=== PATIENT | male | born 1945 ===

== ENCOUNTER 2017-12-28 16:36 | Inpatient (IN) | payer MEDICARE, OTHER ==
[2017-12-28] MEDS ORDERED: Acetaminophen 500 MG TAB ONE (17:05)
[2017-12-28 17:47] LABS: Hemoglobin 13.8 g/dL (14.0-18.0); Mean Corpuscular HGB CONC 33.2 g/dL (32.0-36.0); Mean Corpuscular Hemoglobin 31.4 pg (27.0-31.0); Mean Corpuscular Volume 94.8 fL (78.0-98.0); Mean Platelet Volume 7.8 fL (7.4-10.4); Platelet Count 207 thou/uL (130-400); Red Blood Cell (RBC) Count 4.38 mill/uL (4.70-6.10); White Blood Cell (WBC) Count 12.2 thou/uL (4.8-10.8)
[2017-12-28 18:11] LABS: Band 6 % (5-11); Hypochromia SLIGHT = 6-15 cells (100X) (0-5/hpf); Lymphocytes 5 % (21-51); MDiff Complete? YES; Monocytes 5 % (0-10); Neutrophil 84 % (42-75); PLT Morphology Comment Appears Adequate
[2017-12-28 18:15] LABS: ALT (SGPT) 15 U/L (8-55); AST (SGOT) 22 U/L (5-34); Albumin 3.8 g/dL (3.4-4.8); Alkaline Phosphatase 61 U/L (40-150); Anion Gap 13 mmol/L (10-20); BUN (Urea Nitrogen) 21 mg/dL (8.4-25.7); Bilirubin, Total 2.3 mg/dL (0.2-1.2); Calc. Creatinine Clearance 0 mL/min (70-130); Calcium 9.1 mg/dL (7.8-10.44); Carbon Dioxide 23 mmol/L (23-31); Chloride 102 mmol/L (98-107); Estimated GFR-MDRD 83; Globulin 3.4 g/dL (2.4-3.5); Glucose 109 mg/dL (83-110); Potassium 3.7 mmol/L (3.5-5.1); Protein, Total 7.2 g/dL (5.8-8.1); Sodium 134 mmol/L (136-145)
[2017-12-28] MEDS ORDERED: Azithromycin 500 MG VIAL ONE (18:25)
[2017-12-28] MEDS ORDERED: cefTRIAXone\\ROCEPHIN 2 GM in Sodium Chloride 0.9% 100 ML IVPB SCH (18:30)
--- NOTE | 2017-12-28 19:10 | RAD ---
CHEST TWO VIEWS: 12/28/17 HISTORY: Cough. Fever. FINDINGS: No comparison. The cardiac silhouette is upper limits of normal in size. Pulmonary vasculature is unremarkable. Patc hy areas of parenchymal opacity are present at the left perihilar level, the medial segment right mid dle lobe, and the posterior segment of the right upper lobe. Calcified granulomata of the mediastinum are consistent with healed granulomatous disease. No significant pleural fluid or pneumothorax. IMPRESSION: Multilobar pneumonia. POS: [facility]
[2017-12-28 21:25] LABS: INR-International Normal Ratio 2.8; Prothrombin Time 29.5 SEC (12.0-14.7)
[2017-12-28 22:58] VITALS: BMI 22.6
[2017-12-29] MEDS ORDERED: Acetaminophen 500 MG TAB PO PRN (05:17)
[2017-12-29] MEDS: Acetaminophen 500 MG TAB PO PRN ×2 (05:32→18:08)
[2017-12-29] MEDS ORDERED: Loperamide HCl 2 MG CAP PO PRN (07:57)
[2017-12-29] MEDS ORDERED: Albuterol Sulfate 1.25 MG/3 ML NEB NEB PRN (07:57)
[2017-12-29] MEDS ORDERED: Digoxin 0.25 MG TAB PO SCH (09:00)
[2017-12-29] MEDS: Dutasteride 0.5 MG CAP PO SCH (09:14)
[2017-12-29] MEDS: guaiFENesin ER 600 MG TAB PO SCH ×2 (09:14→20:35)
[2017-12-29] MEDS: Tamsulosin HCl 0.4 MG CAP PO SCH (09:14)
--- NOTE | 2017-12-29 09:41 | RAD ---
PORTABLE CHEST: History: Pneumonia. Follow up. Comparison: 12-28-17 FINDINGS: There are bilateral alveolar infiltrates which do not appear significantly changed from yesterday. He art size upper normal and stable. There are bilateral calcified nodules in both lungs. IMPRESSION: Bilateral infiltrates without significant interval change. POS: [facility]
[2017-12-29 11:47] LABS: Hemoglobin 12.6 g/dL (14.0-18.0); Platelet Count 197 thou/uL (130-400)
[2017-12-29 11:51] LABS: INR-International Normal Ratio 3.9; Prothrombin Time 38.4 SEC (12.0-14.7)
--- NOTE | 2017-12-29 12:25 | HP ---
PRIMARY CARE PHYSICIAN: Dr. Carter Kohli. CHIEF COMPLAINT: Cough and fever. HISTORY OF PRESENT ILLNESS: This is a 72-year-old patient of Dr. Carter Kohli with a history of chronic atrial fibrillation, BPH, presented to the emergency department with worsening cough, fever, and shortness of breath. The patient states that he has been in his usual state of health. He is playing golf this past weekend in [place] when he developed a cough. The cough continued to worsen over the past 2-3 days, he developed a fever two days ago, he did notice blood in the sputum yesterday and has been increasingly short of breath. In the emergency department last night, he was found to have a multilobar pneumonia. He was found to be hypoxic with activity and with conversation. He is now being admitted for further evaluation and treatment. PAST MEDICAL HISTORY: Chronic atrial fibrillation, rate controlled on anticoagulant, history of BPH which is stable. MEDICATIONS: Include digoxin 250 mcg daily, Coumadin 1 mg daily, Flomax 0.4 mg daily, Avodart 0.5 mg daily. ALLERGIES: To MORPHINE. PAST SURGICAL HISTORY: Bilateral shoulder surgery, bilateral knee repair, carpal tunnel release. SOCIAL HISTORY: He is retired from the [employer]. Denies smoking. Rare alcohol use, no drug use. FAMILY HISTORY: Noncontributory. REVIEW OF SYSTEMS: As per the history of present illness. General: Denies any recent fevers, chills or illness prior to this episode. HEENT: Denies headache, visual or hearing changes. Cardiac: Denies chest pain, occasional palpitations when his atrial fibrillation acts up he says. Pulmonary: Positive cough. Positive hemoptysis. Positive shortness of breath. Gastrointestinal: No nausea, vomiting. Positive diarrhea for the past 3 days. No melena, no hematochezia. Genitourinary: History of BPH. No dysuria, denies hematuria. Musculoskeletal: Positive chronic joint pain. He states he does have a history of arthritis in the past. Psychiatric: No history of depression or anxiety. PHYSICAL EXAMINATION: VITAL SIGNS: Temperature 98.8, T-max is 100.9, pulse of 100 and irregular, respirations 22, but last night was up to 30-38, blood pressure 108/59, pulse ox 100% on 3 liters nasal cannula, but dips to 88% with movement in conversation. GENERAL: He is awake and alert, mild distress with conversation. HEENT: Mucosa is moist. NECK: Supple. HEART: Irregular, irregular. LUNGS: With good aeration, but scattered rhonchi throughout. Rare wheezes, no rales. ABDOMEN: Flat, soft, nontender, nondistended. No hepatosplenomegaly. EXTREMITIES: No clubbing, cyanosis or edema, 2+ peripheral pulses bilaterally. NEUROLOGIC: Cranial nerves II through XII are grossly intact. Strength is 5/5 bilaterally. LABORATORY DATA AND IMAGING: White blood cell count was elevated at 12,200 with 84% neutrophils, 6% bands, 5% lymphocytes, hemoglobin and hematocrit are 13.8 and 41.5, platelets of 207. INR of 2.8. Sodium 134, potassium 3.7, chloride 102, CO2 23, BUN and creatinine are 21 and 0.9 with a GFR of 83. Lactic acid is 1.5, total bilirubin was elevated at 2.3. Normal liver function tests. Albumin of 3.8. Chest x-ray revealed multilobar pneumonia in the left perihilar level, right middle lobe, right upper lobe and scattered granulomatous. Blood cultures are pending. Flu test was negative for A and B. Strep test was done in the emergency department, which was negative. ASSESSMENT AND PLAN: This is a 72-year-old gentleman with a chronic atrial fibrillation, now with multilobar pneumonia, likely community-acquired pneumonia. I will continue Rocephin and Zithromax as started in the emergency department. Due to the episodes of hypoxia and bloody sputum, we will consult Pulmonary for evaluation. 1. Chronic atrial fibrillation. We will continue telemetry monitoring and monitor his PT/INR, especially starting the antibiotics. 2. Benign prostatic hypertrophy. We will continue his home medications. 3. Diarrhea, acute. Will get cultures and start imodium prn for likely viral origin. 4. Elevated bilirubin. 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 Patient desires full code status. [facility]
--- NOTE | 2017-12-29 13:09 | CON ---
DATE OF CONSULTATION: 12/29/2017 HISTORY: The patient is a 72-year-old gentleman who was admitted to the hospital with bilateral bron chopneumonia. The patient is a retired journeyman sheet metal worker who states that he started having some diffic ulty breathing several days ago, thought it was his usual atrial fibrillation issues. Finally, becau se of ongoing coughing and fever, bodyaches and a sore throat he came to the ER where x-ray shows debra ateral bronchopneumonia. He has smoked, quit smoking about 40 years ago. There is no previous history of TB, pneumonia or bro nchial asthma. In fact, he is an avid gym worker, he goes 3 times a week, he is very active. PAST MEDICAL HISTORY: Pertinent mainly for his atrial fibrillation, arthritis. He has been seeing a local channel marketing coordinator for many years. PAST SURGICAL HISTORY: Multiple including both shoulders, both knees several times. MEDICATIONS: From home includes Coumadin, Flomax, Avodart and Lanoxin. ALLERGIES: MORPHINE. SOCIAL/FAMILY HISTORY: As noted. REVIEW OF SYSTEMS: Ten point negative. PHYSICAL EXAMINATION: GENERAL: His sats are about 92-94% on supplemental 2 liters. Temperature 98, blood pressure 180/59. CHEST: Chest reveals extensive rhonchi and crackles. CARDIAC: Atrial fibrillation. ABDOMEN: Soft. LABORATORY: His white count is 12,000, H&H 13 and 41, he has got 84 segs, 6 bands. INR is 2.8. Audelia ctrolytes are normal. X-ray has noted diffuse infiltrates. Influenza screen was negative. IMPRESSION: 1. Bilateral bronchopneumonia, community-acquired. 2. Remote history of smoking. 3. Benign prostatic hypertrophy. 4. Atrial fibrillation. PLAN: Continue present treatment. Sputum will be ordered for culture. We will deescalate antibiotics as soon as we have results back. I will follow. This is a consultation note, 70 minutes, 50% spent in direct patient care.
[2017-12-29] MEDS ORDERED: Azithromycin 500 MG in Sodium Chloride 0.9% 250 ML 250 ML IVPB SCH (17:00)
[2017-12-29] MEDS ORDERED: Warfarin Sodium 1 MG TAB PO SCH ×2 (17:00)
[2017-12-29] MEDS ORDERED: Ibuprofen 200 MG TAB PO PRN (17:17)
[2017-12-29] MEDS ORDERED: cefTRIAXone\\ROCEPHIN 2 GM in Sodium Chloride 0.9% 100 ML IVPB SCH (18:00)
[2017-12-30 04:55] LABS: #Lymphocytes 1.4 thou/uL (1.20-3.40); #Monocytes 1.7 thou/uL (0.11-0.59); #Neutrophils 10.7 thou/uL (1.40-6.50); %Basophils 0.1 % (0.0-1.0); %Eosinophils 0.1 % (0.0-10.0); %Lymphocytes 10.2 % (21.0-51.0); %Monocytes 12.2 % (0.0-10.0); %Neutrophils 77.4 % (42.0-75.0); Hemoglobin 12.3 g/dL (14.0-18.0); Mean Corpuscular HGB CONC 32.7 g/dL (32.0-36.0); Mean Corpuscular Hemoglobin 31.3 pg (27.0-31.0); Mean Corpuscular Volume 95.8 fL (78.0-98.0); Mean Platelet Volume 8.1 fL (7.4-10.4); Platelet Count 222 thou/uL (130-400); Red Blood Cell (RBC) Count 3.94 mill/uL (4.70-6.10); White Blood Cell (WBC) Count 13.8 thou/uL (4.8-10.8)
[2017-12-30 05:16] LABS: Anion Gap 10 mmol/L (10-20); BUN (Urea Nitrogen) 20 mg/dL (8.4-25.7); Calc. Creatinine Clearance 91 mL/min (70-130); Calcium 8.4 mg/dL (7.8-10.44); Carbon Dioxide 25 mmol/L (23-31); Chloride 107 mmol/L (98-107); Estimated GFR-MDRD Greater than 90; Glucose 112 mg/dL (83-110); Potassium 3.6 mmol/L (3.5-5.1); Sodium 138 mmol/L (136-145)
--- NOTE | 2017-12-30 08:22 | PRG ---
DATE OF SERVICE: 12/30/2017 SUBJECTIVE: The patient was admitted with bilateral pneumonia. HISTORY OF PRESENT ILLNESS: The patient had had a busy several weeks. He had played [place] recently [place] with his daughter. 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 He states lifted over 50, 50 pounds bags of corn. He then came down with a productive cough and fever and presented to the ER. T his morning he is doing better than yesterday. However, he has severe labored breathing with any act ivity such as going to the bathroom. OBJECTIVE: VITAL SIGNS: Temperature 97.4, pulse 76, respiration 20, pulse ox 98 on 3 liters O2, blood pressure 111/63. HEART: Tachycardic following going to the bathroom. LUNGS: Bilateral rales anteriorly and posteriorly. ABDOMEN: Soft, nontender. EXTREMITIES: With no edema. LABORATORY: Sodium 138, potassium 3.6, BUN is 20, creatinine 0.75, glucose 116, 112. INR 3.0. Whit e count 13.8, H&H 12 and 37. ASSESSMENT: 1. Bilateral lobar pneumonia. 2. Dehydration. 3. Atrial fibrillation followed by Dr. Bowens. PLAN: 1. Recheck CBC, BMP in the a.m. 2. We will start IV hydration with half normal saline and potassium at 50 mL per hour. 3. Continue DuoNebs q.6h. 4. Continue Levaquin and prednisone p.o. 5. We will continue to monitor daily. Note, the patient's anxious to go home to get back to his [employer] feeders.
[2017-12-30] MEDS: 1/2 NS w/KCL 20 mEq 1,000 ML IV SCH (09:14)
[2017-12-30] MEDS: Digoxin 0.125 MG TAB PO SCH (09:18)
[2017-12-30] MEDS: predniSONE 20 MG TAB PO SCH (09:18)
[2017-12-30] MEDS: guaiFENesin ER 600 MG TAB PO SCH ×2 (09:21→21:17)
[2017-12-30] MEDS: Tamsulosin HCl 0.4 MG CAP PO SCH (09:21)
[2017-12-30] MEDS: Dutasteride 0.5 MG CAP PO SCH (09:21)
--- NOTE | 2017-12-30 09:24 | PRG ---
DATE OF SERVICE: 12/30/2017 This morning he is awake, alert, responsive, still coughing some dark yellow sputum, but no fever. PHYSICAL EXAMINATION: VITAL SIGNS: Temperature 97, pulse 76, respiration 20, sats are 93% on 3 liters, blood pressure 111/ 60. CHEST: Extensive rhonchi and crackles. CARDIAC: Normal S1-S2. No gallops. ABDOMEN: Soft. No masses. LABORATORY: INR is 3. White count 13,000, H&H 12 and 38. IMPRESSION: 1. Bilateral bronchopneumonia. 2. Supraventricular tachycardia. 3. Prolonged PT and INR. PLAN: Coumadin has been adjusted. Continue Levaquin and prednisone. PT and supportive care. I will follow.
--- NOTE | 2017-12-30 10:29 | PQF ---
MAXI TRONCOSO, ANDRE Shipman JR, MD [id number] [id number] CLINICAL DOCUMENTATION IMPROVEMENT CLARIFICATION FORM: ICD-10 Updated PLEASE DO AN ADDENDUM TO THE PROGRESS NOTE WITH ANY DOCUMENTATION UPDATES OR ADDITIONS AND CARRY THROUGH TO DC SUMMARY. THANK YOU. DATE: 12/30/17 ATTN: Dr. Kohli Please exercise your independent, professional judgment in responding to the clarification form. Clinical indicators are provided on the bottom of this form for your review Please check appropriate box(es): [ ] Sepsis due to: Pneumonia [ ] Localized infection without sepsis [ ] Other diagnosis [ ] Unable to determine In addition, please specify: Present on Admission (POA): [ ] Yes [ ] No [ ] Unable to determine For continuity of documentation, please document condition throughout progress notes and discharge summary. Thank You. CLINICAL INDICATORS - SIGNS / SYMPTOMS / LABS Fever or hypothermia (<96.8 F/36 C or > 100.4 F/38C)--> Temp max 100.9 12/29 VS Respiratory rate >20/min, Hypoxemia, --> RR 22; 88% O2 sat with conversation on 3L NC per H&P WBC count (>12,000/mm^4 or <4000/mm^3 or 10% neutros, 10% bands)--> WBC 13.8, % neutros 77.4 per 12/30 VS HR 100 12/29 VS RISK FACTORS Pneumonia likely community acquired per H&P TREATMENTS: Telemetry orders 12/29 Daily CBC 12/29 orders Blood/sputum cultures 12/29 orders IV antibiotics - broad spectrum--> Rocephin, Azithromycin IV 12/29--> 12/30 Levaquin IV per MAY IV fluids--> 1/2 NS with KCL at 50 12/29 per MAY oral prednisone 12/30 per MAY THANK YOU, DONY (This form is maintained as a part of the permanent medical record) 2014 [employer]. All Rights Reserved Dony Daniels RN, BSN, CCDS [email or web address]
--- NOTE | 2017-12-30 10:39 | PQF ---
MAXI TRONCOSO, ANDRE Shipman JR, MD [id number] CLINICAL DOCUMENTATION IMPROVEMENT CLARIFICATION FORM: ICD-10 Updated PLEASE DO AN ADDENDUM TO THE PROGRESS NOTE WITH ANY DOCUMENTATION UPDATES OR ADDITIONS AND CARRY THROUGH TO DC SUMMARY. THANK YOU. DATE: 12/30/17 ATTN: Dr. Kohli Please exercise your independent, professional judgment in responding to the clarification form. Clinical indicators are provided on the bottom of this form for your review Please check appropriate box(s): [ ] Coumadin induced coagulopathy with hemoptysis [ ] Coagulopathy [ ] Other diagnosis [ ] Unable to determine In addition, please specify: Present on Admission (POA): [ ] Yes [ ] No [ ] Unable to determine For continuity of documentation, please document condition throughout progress notes and discharge summary. Thank You. CLINICAL INDICATORS - SIGNS / SYMPTOMS / LABS Acute bleed--> patient reports blood in sputum per H&P 12/29 INR 3.9 to 12/30 INR 3.0 per lab 12/30 Dow note: prolonged PT/INR RISK FACTORS Chronic afib on coumadin per H&P TREATMENTS: Adjusted coumadin 12/29 to 1mg per MAR Daily INR 12/29 to date per orders Thank you, Paradise (This form is maintained as a part of the permanent medical record) 2014 [employer]. All Rights Reserved Paradise Daniels RN, BSN, [email or web address] [email or web address] [phone] MTDD
[2017-12-30] MEDS ORDERED: Warfarin Sodium 7.5 MG TAB PO SCH (17:00)
[2017-12-31] MEDS: 1/2 NS w/KCL 20 mEq 1,000 ML IV SCH (01:06)
[2017-12-31 04:47] LABS: #Lymphocytes 1.1 thou/uL (1.20-3.40); #Monocytes 1.5 thou/uL (0.11-0.59); #Neutrophils 9.7 thou/uL (1.40-6.50); %Basophils 0.1 % (0.0-1.0); %Eosinophils 0.2 % (0.0-10.0); %Lymphocytes 8.7 % (21.0-51.0); %Monocytes 12.3 % (0.0-10.0); %Neutrophils 78.7 % (42.0-75.0); Hemoglobin 11.8 g/dL (14.0-18.0); Mean Corpuscular HGB CONC 33.1 g/dL (32.0-36.0); Mean Corpuscular Hemoglobin 31.4 pg (27.0-31.0); Mean Corpuscular Volume 94.9 fL (78.0-98.0); Mean Platelet Volume 7.8 fL (7.4-10.4); Platelet Count 245 thou/uL (130-400); Red Blood Cell (RBC) Count 3.75 mill/uL (4.70-6.10); White Blood Cell (WBC) Count 12.3 thou/uL (4.8-10.8)
[2017-12-31 05:00] LABS: Anion Gap 13 mmol/L (10-20); BUN (Urea Nitrogen) 21 mg/dL (8.4-25.7); Calc. Creatinine Clearance 98 mL/min (70-130); Calcium 8.1 mg/dL (7.8-10.44); Carbon Dioxide 23 mmol/L (23-31); Chloride 106 mmol/L (98-107); Estimated GFR-MDRD Greater than 90; Glucose 116 mg/dL (83-110); Potassium 3.5 mmol/L (3.5-5.1); Sodium 138 mmol/L (136-145)
--- NOTE | 2017-12-31 08:40 | PRG ---
DATE OF SERVICE: 12/31/2017 SUBJECTIVE: Further history revealed that the patient lifted 900 pounds of corn seed with the help o f his friends who is 50 years old. They also loaded up two cords of wood into the truck. This was f ollowed by a round of golf. Eventually, the patient presented to the ER with shortness of breath, fe jason, and productive cough. Today, he is doing much better. However, he still gets very tachycardic with activity. He also remains on 3 liters O2, desatting when he becomes active like going to the [employer]. OBJECTIVE: VITAL SIGNS: Temperature 98.8, pulse 120, respirations 24, pulse ox 94 on 3 liters O2, blood pressur e 154/67. HEART: Irregular, irregular. LUNGS: With bilateral rales. ABDOMEN: Soft. EXTREMITIES: With no edema. GENERAL: The patient is doing well when at rest, sitting in his chair. LABORATORY DATA: Sodium 138, potassium 3.5, chloride 106, creatinine 0.67, BUN 21, glucose 112, 116. Blood culture, sputum culture, stool culture, strep culture, fluid culture are all negative. ASSESSMENT: 1. Multilobar pneumonia leading to sepsis. 2. Fever, resolved. 3. Tachycardia. 4. Chronic atrial fibrillation. 5. Anticoagulation. 6. Prolonged PT/INR. 7. Reactive airway disease. PLAN: 1. Continue IV hydration. May have to cut back if blood pressure remains elevated. 2. Consult Cardiology for tachycardia and chronic atrial fibrillation followed by Dr. Bowens, but he is out of town. 3. Echocardiogram. 4. Continue Levaquin and steroids. 5. INR, CBC and BMP in the a.m. 6. The patient is not quite ready for discharge, hopefully in the next few days.
[2017-12-31] MEDS: Digoxin 0.125 MG TAB PO SCH (09:34)
[2017-12-31] MEDS: predniSONE 20 MG TAB PO SCH (09:34)
[2017-12-31] MEDS: guaiFENesin ER 600 MG TAB PO SCH ×2 (09:36→21:21)
[2017-12-31] MEDS: Dutasteride 0.5 MG CAP PO SCH (09:36)
[2017-12-31] MEDS: Tamsulosin HCl 0.4 MG CAP PO SCH (09:37)
--- NOTE | 2017-12-31 09:42 | PRG ---
DATE OF SERVICE: 12/31/2017 SUBJECTIVE: Alex Gilbert this morning is awake, alert, responsive, still got a cough, apparently had some bloody sputum. PHYSICAL EXAMINATION: VITAL SIGNS: Though he remains afebrile. Pulse is 120, sats are 94 on 3 liters. Blood pressure is 100/56. CHEST: Chest reveals bilateral rhonchi. CARDIAC: Sinus tachycardia. ABDOMEN: Soft. LABORATORY: White count 12,000. Cultures so far negative. X-ray shows bilateral infiltrates, somew hat improved. IMPRESSION: 1. Bilateral bronchopneumonia. 2. Possibly some diastolic dysfunction. PLAN: Continue antibiotics, neb treatments, supportive care. Await results of the echo.
--- NOTE | 2017-12-31 10:02 | RAD ---
CHEST PA AND LATERAL: HISTORY: A 72-year-old male with a history of pneumonia. Followup. FINDINGS: There is somewhat more diffuse interstitial and reticulonodular parenchymal changes throughout the ri ght upper lobe, from the prior study. In addition, the more globular left perihilar infiltrative vidal nges are somewhat less dense with some associated persistent linear and interstitial parenchymal juan ges, as well as small bilateral pleural effusions. Heart size is at least borderline. IMPRESSION: Evolving bilateral pneumonia with somewhat less dense alveolar parenchymal changes but more widesprea d interstitial and reticulonodular parenchymal changes in both lungs. Continued short-term followup for clearing. POS: [facility]
[2017-12-31 10:17] LABS: Platelet Count 283 thou/uL (130-400)
[2017-12-31 10:28] LABS: INR-International Normal Ratio 2.5; Prothrombin Time 27.3 SEC (12.0-14.7)
[2017-12-31] MEDS ORDERED: Furosemide 20 MG/2 ML VIAL SLOW IVP SCH (13:15)
--- NOTE | 2017-12-31 21:17 | CON ---
DATE OF CONSULTATION: 12/31/2017 INDICATION FOR CONSULTATION: A 72-year-old gentleman with bilateral pneumonia and chronic atrial fibrillation with rapid ventricular response. We were asked to see him due to his atrial fibrillation with rapid ventricular response. This is a very pleasant 72-year-old gentleman followed by Dr. Bowens for many years now. He has been followed up on a routine basis. He has had atrial fibrillation, has been on Coumadin for many years. He has had 3 ablations in the past and also she has had 5 cardioversions, but continues to have atrial fibrillation. He denies any chest pain. He has had no previous cardiac history that we are aware of. His last ejection fraction showed a normal ejection fraction by echocardiogram. His repeat echocardiogram pending for today. At this time, he is relatively asymptomatic with his atrial fibrillation , but when moves around or is too active that his heart rate does pickle processor and he does notice that at this time with increasing shortness of breath over the last several weeks and now been diagnosed with bilateral pneumonia and the heart rate also has increased again. Actually on admission, his heart rate was 120 and he has had heart rates since being in here with minimal activity. Heart rate is increased up to almost 160 with the atrial fibrillation. He still denies any discomfort or any chest pain and there were no acute ST segment changes noted though indicate ischemia. PAST MEDICAL HISTORY: Significant for chronic atrial fibrillation, multiple ablations, multiple cardioversions, now he has pneumonia. He has had a history of atrial flutter in the past. He has had a history of surgery to both hands, trigger fingers of both hands. He has had right knee surgery, right rotator cuff repair. He has umbilical surgery and had a vasectomy. ALLERGIES: None. MEDICATIONS: Prior to admission included Coumadin on a scale to keep the INR between 2 and 3, dutasteride 0.5 mg capsules q.p.m., aspirin 81 mg a day, tamsulosin 0.4 mg 1 tablet every day half an hour following the same meal, Lasix 20 mg a day, digoxin 125 mcg daily, metoprolol 25 mg a day. FAMILY HISTORY: Noncontributory. SOCIAL HISTORY: He smoked in the past, but stopped about 40 years ago. There is no significant alcohol use. He has family members who are alive and well. REVIEW OF SYSTEMS: Twelve-point review of systems grossly unremarkable except he does complain of some rapid heart rate, some shortness of breath when he works out at the gym if he over exerts himself. Otherwise, the 12-point review of systems is relatively unremarkable except what was noted in the history of present illness. PHYSICAL EXAMINATION: GENERAL: Reveals a very thin elderly gentleman who is in no acute distress at this time. He did become short of breath, when he got up and went to the bathroom and come back. He could tell that he was somewhat short of breath and also was more tachycardic. VITAL SIGNS: His blood pressure 123/78, heart rate is anywhere between the 90s to 160s. He is afebrile, respiratory rate is 20-24 depending on his level of activity. HEENT: Shows head to be normocephalic, atraumatic. Carotid pulses are present. I did not hear any significant bruits. CHEST: Has some scattered rhonchi. CARDIOVASCULAR: Exam revealed an irregularly irregular rhythm, somewhat tachycardic. He had soft systolic murmur at the apex. ABDOMEN: Soft and nontender. Positive bowel sounds are present. EXTREMITIES: Show no clubbing, cyanosis or edema. Pedal pulses are present. NEUROLOGIC: He appears to be fully intact. He appears to have normal strength and tone. LABORATORY AND X-RAY FINDINGS: EKG as noted above. Laboratory data shows a BUN of 21, creatinine 0.67, potassium of 3.5, hemoglobin 13, hematocrit 39.6, WBC of 12.3, blood sugar was 116. BNP was 420. IMPRESSION: 1. Bilateral pneumonia. The patient remains on antibiotics. 2. History of chronic atrial fibrillation. We will need to readjust his medications somewhat to see whether or not we can control the rate. We will increase his metoprolol. He is not on any digoxin. We will add digoxin for rate control as needed. We may try digoxin first, he is already on digoxin. I would need to obtain a level to see whether or not it is adequate. By the meantime, we will be increase the level of the metoprolol as long as blood pressure will tolerate it. 3. History of benign prostatic hypertrophy. This will be dealt with by the primary care service. He denied any complaints regarding his benign prostatic hypertrophy. 4. Chronic atrial fibrillation. We will continue the Coumadin and we will try to control the rate. 5. History of mitral valve insufficiency, it was mild to moderate. We will reevaluate the echocardiogram to see whether or not this has increased. At this time, overall cardiac status is relatively stable except that we will need to control the heart rate better with the atrial fibrillation. MTDD
[2017-12-31] MEDS: Metoprolol Tartrate 25 MG TAB PO SCH (21:21)
[2018-01-01] MEDS: 1/2 NS w/KCL 20 mEq 1,000 ML IV SCH (02:56)
[2018-01-01 06:20] LABS: INR-International Normal Ratio 2.5; Prothrombin Time 27.1 SEC (12.0-14.7)
[2018-01-01 06:24] LABS: Digoxin 0.35 ng/mL (0.8-2.0)
[2018-01-01 06:26] LABS: Anion Gap 11 mmol/L (10-20); BUN (Urea Nitrogen) 19 mg/dL (8.4-25.7); Calc. Creatinine Clearance 92 mL/min (70-130); Calcium 8.6 mg/dL (7.8-10.44); Carbon Dioxide 27 mmol/L (23-31); Chloride 105 mmol/L (98-107); Estimated GFR-MDRD Greater than 90; Glucose 101 mg/dL (83-110); Potassium 3.5 mmol/L (3.5-5.1); Sodium 139 mmol/L (136-145)
[2018-01-01 06:52] LABS: Band 3 % (5-11); Hemoglobin 11.6 g/dL (14.0-18.0); Hypochromia SLIGHT = 6-15 cells (100X) (0-5/hpf); Lymphocytes 9 % (21-51); MDiff Complete? YES; Mean Corpuscular HGB CONC 33.2 g/dL (32.0-36.0); Mean Corpuscular Hemoglobin 31.3 pg (27.0-31.0); Mean Corpuscular Volume 94.4 fL (78.0-98.0); Mean Platelet Volume 7.8 fL (7.4-10.4); Monocytes 9 % (0-10); Neutrophil 79 % (42-75); PLT Morphology Comment Appears Adequate; Platelet Count 306 thou/uL (130-400); White Blood Cell (WBC) Count 11.7 thou/uL (4.8-10.8)
[2018-01-01] MEDS: guaiFENesin ER 600 MG TAB PO SCH ×2 (08:13→21:19)
[2018-01-01] MEDS: Metoprolol Tartrate 25 MG TAB PO SCH ×2 (08:13→21:19)
[2018-01-01] MEDS: Tamsulosin HCl 0.4 MG CAP PO SCH (08:13)
[2018-01-01] MEDS: Dutasteride 0.5 MG CAP PO SCH (08:13)
[2018-01-01] MEDS: predniSONE 20 MG TAB PO SCH (08:13)
[2018-01-01] MEDS: Digoxin 0.125 MG TAB PO SCH (08:13)
--- NOTE | 2018-01-01 10:52 | PRG ---
DATE OF SERVICE: 01/01/2018 SUBJECTIVE: This morning, the patient is doing much better. Yesterday, he received a dose of IV Las ix. He has lost 5 pounds over the past 24 hours. He is more active in his room. OBJECTIVE: VITAL SIGNS: Temperature 98.1, pulse 94, respirations 19, pulse ox 97 on room air, blood pressure 13 5/71. CARDIOVASCULAR: Irregular irregular rate controlled. LUNGS: With fine rales bilaterally, but markedly improved. ABDOMEN: Soft. EXTREMITIES: No edema. LABORATORY DATA: H&H is 11 and 34. White count down to 11.7, INR 2.5. Electrolytes normal. Creati nine 0.71, BUN 19, blood sugar 101. Digoxin level 0.35. IMAGING: Chest x-ray improving, bilateral infiltrates still present. ASSESSMENT: 1. Multilobar pneumonia/sepsis, improving. 2. Fever, resolved. 3. Chronic atrial fibrillation with rapid ventricular response, resolved. Rate now less than [address] increasing the metoprolol to b.i.d. 4. Anticoagulation. 5. Reactive airway disease. PLAN: 1. Hydrate p.o. IV Hep-Lock. 2. Echocardiogram shows an ejection fraction of 60%-65%. The patient's rate is controlled on the me toprolol b.i.d. 3. Continue Levaquin and steroids. 4. Possibly discharge in the next 1-2 days.
--- NOTE | 2018-01-01 13:05 | PDOC.CTH ---
<Radha Bassett - Last Filed: 01/01/18 13:02> Cardiology Progress Note - Subjective The pt seen and examined. No overnight events. No cardiac complaints. - Objective Vital Signs Temp Pulse Resp BP Pulse Ox 01/01/18 08:13 94 01/01/18 08:07 98.1 F 89 19 135/71 97 01/01/18 08:01 92 L 01/01/18 07:58 97 20 92 L 01/01/18 03:45 98.7 F 92 112/70 90 L Admit Weight 162 lb Weight 154 lb 8 oz 12/31/17 01/01/18 01/02/18 06:59 06:59 06:59 Intake Total 3380 960 Balance 3380 960 - Physical Examination General/Neuro: alert & oriented x3 Neck: no JVD present Lungs: CTA Heart: other: (irregular) Abdomen: soft Extremities: other: (No edema) - Telemetry Telemetry Rhythm: AFib 90s - Labs Result Diagrams: 01/01/18 05:27 01/01/18 05:27 - Assessment/Plan 1. Chronic Afib/aflutter - Rate well controlled with Metoprolol, Diogixn, and Coumadin. Dig level was 0.35. 2. Bilat. PNA - stable managed by PCP 3. Restrictive airway disease - stable 4. BPH MAR reviewed * Echo on 12/31/17 showed EF 60-65%, trace MR, trace TR, and mild LVH. Review of Systems - Review of Systems Constitutional: reports: no symptoms reported EENTM: reports: no symptoms reported Respiratory: reports: no symptoms reported Cardiac (ROS): reports: no symptoms reported ABD/GI: reports: no symptoms reported : reports: no symptoms reported Musculoskeletal: reports: no symptoms reported <Janet Jacobo - Last Filed: 01/02/18 00:01> Cardiology Progress Note - Objective Vital Signs Temp Pulse Resp BP BP Pulse Ox 01/01/18 20:15 97.8 F 119 H 19 118/67 93 L 01/01/18 19:24 92 L 01/01/18 19:23 92 L 01/01/18 15:57 98.0 F 100 20 138/75 92 L 01/01/18 13:22 100 20 01/01/18 13:00 92 L 01/01/18 12:55 99.0 F 84 20 118/71 90 L Admit Weight 162 lb Weight 154 lb 8 oz 12/31/17 01/01/18 01/02/18 06:59 06:59 06:59 Intake Total 3380 960 960 Balance 3380 960 960 - Labs Result Diagrams: 01/01/18 05:27 01/01/18 05:27 - Assessment/Plan Pt. seen and evaluated by me. I agree with the A/P by the SLIDE FORMING MACHINE OPERATOR. We have discussed the pt. and the plan.Chest clear. Irreg/irreg.
[2018-01-02] MEDS: predniSONE 20 MG TAB PO SCH (09:30)
[2018-01-02] MEDS: Digoxin 0.125 MG TAB PO SCH (09:30)
[2018-01-02] MEDS: Dutasteride 0.5 MG CAP PO SCH (09:31)
[2018-01-02] MEDS: guaiFENesin ER 600 MG TAB PO SCH ×2 (09:31→20:10)
[2018-01-02] MEDS: Tamsulosin HCl 0.4 MG CAP PO SCH (09:31)
[2018-01-02] MEDS: Metoprolol Tartrate 25 MG TAB PO SCH ×2 (09:31→20:10)
[2018-01-02 11:02] LABS: Hemoglobin 12.6 g/dL (14.0-18.0); Platelet Count 382 thou/uL (130-400)
[2018-01-02 11:11] LABS: Prothrombin Time 22.4 SEC (12.0-14.7)
--- NOTE | 2018-01-02 12:43 | RAD ---
TWO VIEW CHEST: COMPARISON: 12/31/2017. INDICATION: Multilobar pneumonia. FINDINGS: There is progressive opacity of the right upper lung zone. Diffuse interstitial prominence of each l erica present. There is a pleural-based density again seen at the lower chest bilaterally. Cardiac si lhouette and pulmonary vasculature are prominent. IMPRESSION: 1. Progressive patchy multifocal opacity of the right upper lung zone. This is indicative of an aty pical pneumonia. Correlate clinically. 2. Bilateral pleural-based densities persist. POS: [facility]
--- NOTE | 2018-01-02 13:22 | PDOC.CTH ---
<Radha Bassett - Last Filed: 01/02/18 13:26> Cardiology Progress Note - Subjective The pt seen and examined. No overnight events. No cardiac complaints. the pt cont. having very hard coughs from PNA. - Objective Vital Signs Temp Pulse Resp BP Pulse Ox 01/02/18 09:30 99 01/02/18 08:00 97.6 F 99 20 127/81 94 L 01/02/18 07:19 99 01/02/18 07:11 82 L 01/02/18 07:08 101 H 20 82 L 01/02/18 04:00 98.7 F 87 20 124/69 94 L Admit Weight 162 lb Weight 152 lb 3.2 oz 01/01/18 01/02/18 01/03/18 06:59 06:59 06:59 Intake Total 960 1210 Balance 960 1210 - Physical Examination General/Neuro: alert & oriented x3 Neck: no JVD present Lungs: other: (coarses and diminished at bases) Heart: other: (irregular) Abdomen: soft Extremities: other: (No edema) - Telemetry Telemetry Rhythm: Afib 90-100s - Labs Result Diagrams: 01/02/18 10:28 01/01/18 05:27 - Assessment/Plan 1. Chronic Afib/aflutter - Rate well controlled with Metoprolol, Diogixn, and Coumadin, which will resume from this PM. Dig level was 0.35. 2. Bilat. PNA - stable managed by PCP 3. Restrictive airway disease - stable 4. BPH MAR reviewed * Echo on 12/31/17 showed EF 60-65%, trace MR, trace TR, and mild LVH. Review of Systems - Review of Systems Constitutional: reports: no symptoms reported EENTM: reports: no symptoms reported Respiratory: reports: see HPI Cardiac (ROS): reports: no symptoms reported ABD/GI: reports: no symptoms reported : reports: no symptoms reported Musculoskeletal: reports: no symptoms reported <Janet Jacobo - Last Filed: 01/02/18 22:29> Cardiology Progress Note - Objective Vital Signs Temp Pulse Resp BP Pulse Ox 01/02/18 20:15 97.4 F L 108 H 16 122/81 96 01/02/18 19:03 91 L 01/02/18 19:02 91 L 01/02/18 15:50 98.6 F 102 H 20 129/82 91 L 01/02/18 14:19 81 20 90 L Admit Weight 162 lb Weight 152 lb 3.2 oz 01/01/18 01/02/18 01/03/18 06:59 06:59 06:59 Intake Total 960 1210 Balance 960 1210 - Labs Result Diagrams: 01/02/18 10:28 01/01/18 05:27 - Assessment/Plan Pt. seen and evaluated by me. I agree with the A/P by the [facility]. We have discussed the pt. and the plan.Chest clear RRR. He is feeling better tis PM.
--- NOTE | 2018-01-02 14:30 | PRG ---
DATE OF SERVICE: 01/02/2018 SUBJECTIVE: He is better. He is less short of breath. X-ray still shows small pleural effusion. B ilateral infiltrates are somewhat less pronounced. His echo shows that he has evidence of a normal EF. IMPRESSION: Elevated BNP. Respiratory pneumonia. From the pulmonary standpoint, I feel he is stable enough to be discharged home on oral antibiotics. Follow up in the office in about a month.
[2018-01-02] MEDS ORDERED: Warfarin Sodium 7.5 MG TAB PO SCH (17:00)
--- NOTE | 2018-01-03 07:40 | DIS ---
DATE OF ADMISSION: 12/29/2017 DATE OF DISCHARGE: 01/03/2018 DISCHARGE DIAGNOSES: 1. Multilobar pneumonia/sepsis. 2. Fever, resolved. 3. Chronic atrial fibrillation with rapid ventricular response, resolved/atrial flutter. 4. Anticoagulation. 5. Reactive airway disease. DISCHARGE MEDICATIONS: Aspirin 81 mg daily, digoxin 0.125 daily, Levaquin 750 p.o. daily, metoprolol 25 p.o. b.i.d., Flomax 0.4 mg day, Coumadin 7.5 daily. FOLLOWUP: Follow up [address] Carter Kohli. Follow up with Dr. Dow. Follow up with Dr. Gael matos. BRIEF HISTORY: This is a 72-year-old white male who presents with history of chronic atrial, present ed to the ER with cough, fever, shortness of breath. He had a strenuous 2 weeks. He voided 50 bags of 50-pound and also played a round of golf. He also loaded over two truckloads of wood. He d eveloped a productive cough, which became progressively worse with fever and presented to the ER wher e he was admitted. HOSPITAL COURSE: The patient was hypoxic. He was placed on oxygen. He was placed on steroids and I V Levaquin. He also received breathing treatments. He was seen by Dr. Jacobo also. He did have also evidence of pulmonary edema, which resolved with Lasix. However, his main issue was multilobar pneum onia, which has markedly improved since admission. He is now no longer on O2. His activity is relat ively back to normal. He is doing well, at this time, is now ready for discharge. I have limited hi s physical activity. He needs to stay hydrated and do not overdo it. LABORATORY AND DIAGNOSTIC DATA: White count 11.7, H&H 12 and 37. Electrolytes normal. Creatinine 0 .71, BUN 19, blood sugar 101. INR 2.0. Digoxin 0.35. Chest x-ray with multilobar pneumonia. Echo with ejection fraction of 60-65%.
--- NOTE | 2018-01-03 07:49 | PRG ---
DATE OF SERVICE: 01/01/2018 SUBJECTIVE: Alex Gilbert is doing better. He is still coughing a little bit of blood. OBJECTIVE: VITAL SIGNS: Sats are 97 on room air, temperature 98, pulse 89, blood pressure 135/71. CHEST: No wheezing, no crackles. CARDIAC: Normal S1-S2. No gallops. ABDOMEN: No masses. LABORATORY DATA: INR is 2.5. White count 9000. Cultures negative. X-ray showed a normal EF. IMPRESSION: Bilateral bronchopneumonia, probably diastolic dysfunction, much improved. Continue agg ressive PT, antibiotics. He can probably be discharged home in the next several days.
[2018-01-03] MEDS: predniSONE 20 MG TAB PO SCH (08:50)
[2018-01-03] MEDS: Digoxin 0.125 MG TAB PO SCH (08:50)
[2018-01-03] MEDS: Metoprolol Tartrate 25 MG TAB PO SCH (08:51)
[2018-01-03] MEDS: guaiFENesin ER 600 MG TAB PO SCH (08:52)
[2018-01-03] MEDS: Dutasteride 0.5 MG CAP PO SCH (08:52)
[2018-01-03] MEDS: Tamsulosin HCl 0.4 MG CAP PO SCH (08:52)
--- NOTE | 2018-01-03 08:55 | PRG ---
DATE OF SERVICE: 01/03/2018 This morning he is doing better, he is less short of breath, less cough. PHYSICAL EXAMINATION: VITAL SIGNS: Sats are 92% on room air, blood pressure 120/78, temperature 98, pulse 91, respiration rate 18. CHEST: Minimal crackles. CARDIAC: Normal S1-S2. No gallops. ABDOMEN: Soft, no masses. IMPRESSION: 1. Pneumonia. 2. Bronchitis. PLAN: Discharge him on low dose prednisone, antibiotic. I am planning to see him back in 3 weeks in the office.
--- NOTE | 2018-01-03 12:11 | PDOC.CTH ---
Cardiology Progress Note - Subjective The pt seen and examined. No overnight events. No cardiac complaints. - Objective Vital Signs Temp Pulse Resp BP BP Pulse Ox 01/03/18 10:37 93 L 01/03/18 10:35 87 12 01/03/18 08:00 93 L 01/03/18 07:57 98 F 91 18 129/78 93 L 01/03/18 04:00 98.7 F 85 24 H 105/59 L 91 L Admit Weight 162 lb Weight 152 lb 9.6 oz 01/02/18 01/03/18 01/04/18 06:59 06:59 06:59 Intake Total 1210 240 Balance 1210 240 - Physical Examination General/Neuro: alert & oriented x3 Neck: no JVD present Lungs: other: (diminished at bases) Heart: other: (irregular) Abdomen: soft Extremities: other: - Telemetry Telemetry Rhythm: Afib 90s - Labs Result Diagrams: 01/02/18 10:28 01/01/18 05:27 - Assessment/Plan 1. Chronic Afib/aflutter - Rate well controlled with Metoprolol, Diogixn, and Coumadin. Dig level was 0.35. 2. Bilat. PNA - stable managed by PCP 3. Restrictive airway disease - stable 4. BPH MAR reviewed * Echo on 12/31/17 showed EF 60-65%, trace MR, trace TR, and mild LVH. * From Cardiac standpoint, the pt is stable to d/c home. The pt will f/u with Dr Bowens within 1 month, Dr Dow within 3 wks, and Dr Kohli within 1wk. . Review of Systems - Review of Systems Constitutional: reports: no symptoms reported EENTM: reports: no symptoms reported Respiratory: reports: no symptoms reported Cardiac (ROS): reports: no symptoms reported ABD/GI: reports: no symptoms reported : reports: no symptoms reported Musculoskeletal: reports: no symptoms reported
--- NOTE | 2018-01-03 13:06 | PQF ---
MAXI TRONCOSO, ANDRE Shipman JR, MD [id number] CLINICAL DOCUMENTATION IMPROVEMENT CLARIFICATION FORM: ICD-10 Updated PLEASE DO AN ADDENDUM TO THE PROGRESS NOTE WITH ANY DOCUMENTATION UPDATES OR ADDITIONS AND CARRY THROUGH TO DC SUMMARY. THANK YOU. DATE: 01/03/18 ATTN: DR. ENNIS Please exercise your independent, professional judgment in responding to the clarification form. Clinical indicators are provided on the bottom of this form for your review Please check appropriate box(s): [ ] Acute pulmonary edema [ ] Chronic pulmonary edema [ ] Other diagnosis [ ] Unable to determine In addition, please specify: Present on Admission (POA): [ ] Yes [ ] No [ ] Unable to determine For continuity of documentation, please document condition throughout progress notes and discharge summary. Thank You. CLINICAL INDICATORS - SIGNS / SYMPTOMS / LABS Hypoxia--> 88% 3L NC per H&P during conversation Discharge summary: evidence of pulmonary edema; main issue multilobar pneumonia RISK FACTORS Multilobar pneumonia H&P TREATMENTS: Oxygen 3L NC 12/29 per orders Monitoring of oxygenation status 12/29 per orders Antibiotics IV--> Levaquin iv 12/30 to date per MAY Respiratory treatments 12/29 per MAY Diuresis--> IV lasix x1 12/31 per MAY Pulmonary Consult 12/29 per orders THANK YOU, DONY (This form is maintained as a part of the permanent medical record) 2014 [employer]. All Rights Reserved Dony Daniels RN, BSN, CCDS [email or web address] [phone] [facility]
[2018-01-03 13:12] VITALS: BP 132/75; TEMP 97.7
--- NOTE | 2018-01-08 10:58 | EKG ---
Test Reason : TACHYCARDIA Blood Pressure : / mmHG Vent. Rate : 120 BPM Atrial Rate : 375 BPM P-R Int : 000 ms QRS Dur : 080 ms QT Int : 324 ms P-R-T Axes : 000 107 -45 degrees QTc Int : 457 ms Atrial fibrillation with rapid ventricular response Rightward axis Low voltage QRS Septal infarct , age undetermined Abnormal ECG Confirmed by YVROSE ADHIKARI M.D. ([id number]), electronic news gathering editor ARELIS JASSO ([id number]) on 01/08/2018 10:58:23 AM Referred By: Confirmed By:YVROSE ADHIKARI M.D.
== END 2018-01-03 13:28 | disposition home or self-care (01) | DRG 871 ==
LOC: ERS 16:36 → 2SW 21:42 → OBSVTOIN 12-29 07:44 → 2NO 12-29 17:36
PROVIDERS: ADMIT Family Medicine; ATTEND Family Medicine
DX: A41.9 Sepsis, unspecified organism (principal); J18.9 Pneumonia, unspecified organism; I48.2 Chronic atrial fibrillation; Z79.01 Long term (current) use of anticoagulants; N40.0 Benign prostatic hyperplasia without lower urinary tract symptoms
CPT/HCPCS: 36415; 36416; 71045; 71046; 80048; 80053; 80162; 83605; 83880; 85014; 85018; 85025; 85049; 85610; 87040; 87045; 87046; 87070; 87081; 87205; 87430; 87449; 87804; 87899; 93005; 93306; 94640; 96361; 96365; 96367; 99213; G0463; J0456; J0696; J1940; J7050; J7506; J7620

== ENCOUNTER 2018-01-28 12:41 | Outpatient (CLI) | payer MEDICARE, OTHER ==
--- NOTE | 2018-01-28 14:27 | RAD ---
TWO VIEWS CHEST: HISTORY: Dyspnea. 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 PA and lateral views of the chest demonstrate numerous calcified granuloma seen. Some mild cardiomeg fam is seen. Mild pulmonary vascular congestion is seen. No evidence of acute intrathoracic abnorma lity is seen. No evidence of effusions, pneumonia, or pneumothorax seen. There is marked improved a eration with decreased airspace opacities in the lung parenchyma when compared to the previous exam. IMPRESSION: Calcified granulomas with no evidence of acute intrathoracic abnormality seen. POS: [facility]
== END 2018-01-28 12:42 | disposition home or self-care (01) ==
LOC: RAD 12:41
PROVIDERS: ATTEND Internal Medicine Pulmonary Disease
DX: R06.00 Dyspnea, unspecified (principal); J84.10 Pulmonary fibrosis, unspecified
CPT/HCPCS: 71046

== ENCOUNTER 2023-02-08 13:33 | Outpatient (CLI) | payer MEDICARE, OTHER | END 2023-02-08 13:34 | disposition home or self-care (01) | LOC: BICRAD 13:33 | PROVIDERS: ATTEND Family Medicine | DX: R68.89 Other general symptoms and signs (principal); I51.7 Cardiomegaly; D71 Functional disorders of polymorphonuclear neutrophils; Z20.822 Contact with and (suspected) exposure to COVID-19 | CPT/HCPCS: 36415; 71046; 85025; 87635 ==

== ENCOUNTER 2023-04-04 09:07 | Emergency (ER) | payer MEDICARE, OTHER ==
[2023-04-04 09:42] LABS: #Monocytes 0.9 thou/uL (0.11-0.59); #Neutrophils 3.6 thou/uL (1.40-6.50); %Basophils 0.5 % (0.0-1.0); %Eosinophils 0.5 % (0.0-10.0); %Lymphocytes 15.8 % (21.0-51.0); %Monocytes 17.1 % (0.0-10.0); %Neutrophils 65.9 % (42.0-75.0); Hematocrit 39.8 % (42.0-52.0); Hemoglobin 13.4 g/dL (14.0-18.0); Mean Corpuscular HGB CONC 33.7 g/dL (32.0-36.0); Mean Corpuscular Hemoglobin 31.8 pg (27.0-31.0); Mean Corpuscular Volume 94.3 fl (78.0-98.0); Mean Platelet Volume 10.4 fL (7.4-10.4); Platelet Count 178 10x3/uL (130-400); RBC Distribution Width 13.3 % (11.5-14.5); Red Blood Cell (RBC) Count 4.22 mill/uL (4.70-6.10); White Blood Cell (WBC) Count 5.5 10x3/uL (4.8-10.8)
[2023-04-04 09:57] LABS: ALT (SGPT) 19 U/L (8-55); AST (SGOT) 37 U/L (5-34); Albumin 3.8 g/dL (3.4-4.8); Alkaline Phosphatase 68 U/L (40-110); Anion Gap 9 mmol/L (10-20); BUN (Urea Nitrogen) 19 mg/dL (8.4-25.7); Bilirubin, Total 1.6 mg/dL (0.2-1.2); Calc. Creatinine Clearance 0 mL/min (70-130); Calcium 8.6 mg/dL (7.8-10.44); Carbon Dioxide 23 mmol/L (23-31); Chloride 104 mmol/L (98-107); Estimated GFR 91; Globulin 2.6 g/dL (2.4-3.5); Glucose 95 mg/dL (83-110); Lipase 25 U/L (8-78); Potassium 4.2 mmol/L (3.5-5.1); Protein, Total 6.4 g/dL (5.8-8.1); Sodium 132 mmol/L (136-145)
[2023-04-04 13:53] LABS: Troponin I 0.102 ng/mL (< 0.028)
== END 2023-04-04 14:25 | disposition home or self-care (01) ==
LOC: ERS 09:07
DX: R07.9 Chest pain, unspecified (principal); R79.89 Other specified abnormal findings of blood chemistry
CPT/HCPCS: 36415; 71045; 80053; 83690; 84484; 85025; 93005

== ENCOUNTER 2023-04-24 14:06 | Emergency (ER) | payer MEDICARE, OTHER ==
[2023-04-24 15:25] LABS: #Basophils 0.1 thou/uL (0.0-0.2); #Eosinphils 0.1 thou/uL (0.0-0.7); #Monocytes 0.6 thou/uL (0.11-0.59); #Neutrophils 3.9 thou/uL (1.40-6.50); %Basophils 0.9 % (0.0-1.0); %Eosinophils 1.6 % (0.0-10.0); %Lymphocytes 20.1 % (21.0-51.0); %Monocytes 9.6 % (0.0-10.0); %Neutrophils 67.6 % (42.0-75.0); Hematocrit 40.3 % (42.0-52.0); Hemoglobin 13.2 g/dL (14.0-18.0); Mean Corpuscular HGB CONC 32.8 g/dL (32.0-36.0); Mean Corpuscular Hemoglobin 31.6 pg (27.0-31.0); Mean Corpuscular Volume 96.4 fl (78.0-98.0); Mean Platelet Volume 10.1 fL (7.4-10.4); Platelet Count 234 10x3/uL (130-400); RBC Distribution Width 13.2 % (11.5-14.5); Red Blood Cell (RBC) Count 4.18 mill/uL (4.70-6.10); White Blood Cell (WBC) Count 5.7 10x3/uL (4.8-10.8)
[2023-04-24 15:47] LABS: ALT (SGPT) 20 U/L (8-55); AST (SGOT) 41 U/L (5-34); Alkaline Phosphatase 89 U/L (40-110); Anion Gap 13 mmol/L (10-20); BUN (Urea Nitrogen) 12 mg/dL (8.4-25.7); Bilirubin, Total 1.4 mg/dL (0.2-1.2); Calc. Creatinine Clearance 0 mL/min (70-130); Calcium 8.9 mg/dL (7.8-10.44); Carbon Dioxide 24 mmol/L (23-31); Chloride 108 mmol/L (98-107); Estimated GFR 91; Globulin 2.8 g/dL (2.4-3.5); Glucose 117 mg/dL (83-110); Protein, Total 6.8 g/dL (5.8-8.1); Sodium 141 mmol/L (136-145)
[2023-04-24 15:50] LABS: INR-International Normal Ratio 1.2; PTT 33.7 sec (22.9-36.1); Prothrombin Time 15.7 sec (12.0-14.7)
[2023-04-24 15:51] LABS: Troponin I 0.067 ng/mL (< 0.028)
[2023-04-24] MEDS ORDERED: Boostrix 0.5 ML (Tdap) VIAL (>/=7 yrs of age) ONE (16:15)
[2023-04-24] MEDS ORDERED: Acetaminophen 325 MG TAB ONE (16:15)
== END 2023-04-24 17:15 | disposition home or self-care (01) ==
LOC: ERS 14:06
DX: R55 Syncope and collapse (principal); S06.9X9A Unspecified intracranial injury with loss of consciousness of unspecified duration, initial encounter; W17.89XA Other fall from one level to another, initial encounter; Y93.43 Activity, gymnastics; Y92.39 Other specified sports and athletic area as the place of occurrence of the external cause; Z23 Encounter for immunization; S00.01XA Abrasion of scalp, initial encounter
CPT/HCPCS: 36415; 70450; 71045; 80053; 83880; 84484; 85025; 85610; 85730; 90471; 90715; 93005; 94760

== ENCOUNTER 2025-01-24 08:05 | Outpatient (CLI) | payer MEDICARE, OTHER ==
[2025-01-24 08:38] LABS: Estimated GFR - POC 86.0
[2025-01-24] MEDS ORDERED: Iopamidol 370 76% 100 ML VIAL ONE (10:32)
== END 2025-01-24 08:06 | disposition home or self-care (01) ==
LOC: CT 08:05
PROVIDERS: ATTEND Family Medicine
DX: J90 Pleural effusion, not elsewhere classified (principal); I51.7 Cardiomegaly; R91.1 Solitary pulmonary nodule
CPT/HCPCS: 36415; 71260; 82565